=== PATIENT | female | born 1990 | race African-American/Black ===

== ENCOUNTER 2019-06-17 02:02 | Emergency (ER) | payer OTHER ==
[~2019-06-17] VITALS: Ht 160 cm; Wt 63.5 kg
[~2019-06-17 02:02] MED LIST: COLACE 100 MG100 MG; IBUPROFEN 800800 M1; IRON325; KEFLEX500 M1 PO; MOBIC15 MG PO; NORCO 5-325 TA1 EACH PO; VALIUM5 MG PO
[2019-06-17] MEDS ORDERED: NOHOMEMEDICATIONS (02:15)
[2019-06-17 02:36] LABS: BASOPHILS 0.2 % (0.0-2.0); EOSINOPHILS 0.8 % (0.0-3.0); HEMATOCRIT 35.7 % (37.0-47.0); HEMOGLOBIN 11.8 gm/dL (12.0-15.0); LYMPHOCYTES 36.4 % (24.0-44.0); MCH 29.4 pg (26.0-34.0); MCV 88.8 fL (80.0-100.0); MONOCYTES 5.5 % (1.0-8.0); PLATELET COUNT 228 thou/uL (150-400); POLYS 57.1 % (36.0-66.0); RBC 4.02 mil/uL (4.20-5.00); RDW 14.2 % (10.5-14.5); WBC 5.3 thou/uL (4.0-11.0)
[2019-06-17 02:42] LABS: CALCIUM 8.9 mg/dL (8.5-10.1); CREATININE 0.6 mg/dL (0.6-1.0); POTASSIUM 3.7 mmol/L (3.5-5.1)
[2019-06-17] MEDS ORDERED: ZOFRAN ODT4 MG PO (03:26)
[2019-06-17 03:32] VITALS: BP 109/66
== END 2019-06-17 03:33 | disposition home or self-care (01) ==
LOC: ER 02:02
PROVIDERS: Emergency Medicine
DX: R51 Headache (principal); R11.2 Nausea with vomiting, unspecified

== ENCOUNTER 2020-06-18 19:31 | Emergency (ER) | payer OTHER ==
[~2020-06-18] VITALS: Ht 149.9 cm; Wt 61.2 kg
[~2020-06-18 19:31] MED LIST changes: +NOHOMEMEDICATIONS; +ZOFRAN ODT4 MG PO
[2020-06-18 20:37] VITALS: BP 95/51
[2020-06-18] MEDS ORDERED: TESSALON PERLE100 MG PO (23:11)
== END 2020-06-18 23:26 | disposition home or self-care (01) ==
LOC: ER 19:31
DX: U07.1 COVID-19 (principal)